=== PATIENT | female | born 1975 | race Two or more races ===

== ENCOUNTER 2018-06-10 19:36 | Emergency (ER) | payer BC ==
[~2018-06-10] VITALS: Ht 152.4 cm; Wt 54.0 kg
== END 2018-06-10 22:30 | disposition home or self-care (01) ==
LOC: ER 19:36
DX: T24.211A Burn of second degree of right thigh, initial encounter (principal); X10.0XXA Contact with hot drinks, initial encounter; Y93.89 Activity, other specified; Y92.89 Other specified places as the place of occurrence of the external cause; Y99.8 Other external cause status